=== PATIENT | male | born 1970 | race Caucasian/White ===

== ENCOUNTER → 2016-05-07 20:59 | Emergency (ER) | payer MEDICAID, OTHER, SELFPAY ==
[~2016-05-07 20:59] MED LIST: /PANT40TA OR; ACET65TA OR; ADVIL PO; FERR325T OR; FOLI1TAB OR; LASI20TA PO; LIPI10TA PO; METAL LOCK LOOP XX ONE; NORV5TAB PO; PERC5TAB8 OR; PRED10TA PO; SENO8.6T10 PO; TYLE325T5 PO; [UNRECOGNIZED DRUG - OTHER] PO; robitussin PO
--- NOTE | 2016-05-07 22:43 | EDDOCDS ---
Physician Documentation [facility] Name: Patrick Stark Age: 46 yrs Sex: Male : 1970 Arrival Date: 05/07/2016 Time: 20:59 Bed 2 Private MD: Disposition: Patient pronounced on 05/07/16 20:59 by Austin Will. Impression: Cardiac arrest. HPI: 05/07 21:06 This 46 yrs old Male presents to ER with complaints of Cardiac Arrest. pc 21:06 The history is obtained from EMS providers, a alumni relations officer. He was reportedly SOB at home and was reaching for his CPAP when he collapsed and went unresponsive. EMS was called and he was found pulseless and unresponsive, in PEA on the monitor. ACLS was initiated. His rhythm changed to asystole. He did not recover a spontaneous pulse at any time. On arrival, he is unresponsive with active CPR in progress. There is no signs of trauma. His pupils are fixed and dilated. He has no spontaneous pulse, has no spontaneous respirations. He is cold to the touch. His rhythm is asystole after 35 minutes of resuscitative efforts. The code was called and he was pronounced at 2059h. Historical: - Allergies: Unable to obtain; - Home Meds: 1. Unknown - PMHx: Asthma; - PSHx: Unable to obtain; MDM: 21:25 ED course: His fiancee confirms what our EMR reports, that he was last seen in 2013, when he presented with acute respiratory failure, in CHF. He was seen in the [facility] office once after that and has never seen a PCP since, has not taken any med sin 3 years.. 21:41 Physician consultation: Dr. Denver Scott was contacted at 21:41, regarding patient's condition, and he accepts as a [place] case. 22:12 Financial registration complete. zo 22:12 [place] [place] was scanned into [employer] and attached to record. zo Signatures: Austin Will MD MD pc Zecher, Calvin, RN RN cz Olin, Zoeann zo Booth, Mandy, RN RN [facility] The chart was reviewed and I authenticate all verbal orders and agree with the evaluation and treatment provided.Attachments: 22:12 [place] [place] zo MTDD
--- NOTE | 2016-05-07 22:43 | EDDOCDS ---
Nurse's Notes [facility] Name: Patrick Stark Age: 46 yrs Sex: Male : 1970 Arrival Date: 05/07/2016 Time: 20:59 Bed 2 Private MD: Diagnosis: Cardiac arrest Presentation: 05/07 20:56 Presenting complaint: EMS states: per : pt was reaching for his CPAP machine and mlc was feeling SOB. pt was down approx 15 minutes prior to EMS arrival. 5x 1 mg Epinephrine given by EMS. FS wsa 126. EMS states rhythm was PEA on monitor and then asystole just before arrival. Method of arrival: Ambulance: direct to room. Care prior to arrival: oral airway placed, CPR manually performed by EMS and is still in progress Placed on backboard. IV initiated. Glucose check. 126. 20:56 Compressions began prior to arrival. mlc 21:07 Acuity: ANDI Level 1 [facility] [place] Triage Assessment: 21:17 General: Appears obese. Neurological: Pupils are fixed, dilated. Respiratory: Airway is mlc compromised Respiratory effort is no respiratory effort. Derm: Skin is cyanotic. Historical: - Allergies: Unable to obtain; - Home Meds: 1. Unknown - PMHx: Asthma; - PSHx: Unable to obtain; Screenin:11 Abuse/DV Screen: The patient / caregiver reports he/she is: pt cannot be assessed for [facility] living situation at this time. Nutritional screening: Unable to Assess. Assessment: 20:56 CPR assessment: unresponsive, pupils fixed & dilated, no respiratory effort, cyanotic. mlc 20:56 General: CPR in progress by EMS upon arrival. mlc 20:59 Cardiac rhythm is asystole. [facility] ED Course: 21:00 Patient visited by Ant Calhoun PCA. kb5 21:00 Giovanna Knox,RN is Primary Nurse. kb5 21:00 Patient moved to Waiting kb5 21:00 Patient moved to 2 kb5 21:05 Austin Will MD is Attending Physician. pc 21:06 Austin Will MD is Pronouncing Provider. pc 21:11 Maintain field IV. Gauge & site: 20g left FA. mlc 21:12 Patient visited by Austin Will MD. pc 22:12 Patient name changed from Patrick\S\\S\Dresler\S\ to Patrick\S\ \S\Dresler. EDMS 22:12 [facility] Payment Agreement was scanned into [employer] and attached to record. zo Order Results: There are currently no results for this order. Outcome: 21:06 Patient . 21:11 Discharge Assessment: pt . Code Team Members : Austin Will MD Respiratory mlc Therapist: Rohit Tai Other Team Members: Nilsa Rudd, DERRELL. Costa Albarado, DERRELL. Brunilda Perez, VALUATION MANAGER. Aurora Chappell, VALUATION MANAGER. Rhythm strips are placed in the patient chart. Outcome Patient . Patient : Time of 20:59 Pronounced by Austin Will MD. Condition: . 22:42 Patient left the ED. cz Signatures: Dispatcher [employer] EDVT Austin Will MD MD pc Zecher, Calvin, RN RN cz Anabel Donnelly Kristopher, VALUATION MANAGER VALUATION MANAGER kb5 Giovanna Knox RN RN mlc Corrections: (The following items were deleted from the chart) 21:20 20:56 CPR assessment: unresponsive, pupils fixed & dilated, no respiratory effort, mlc cyanotic, mlc MTDD
--- NOTE | 2016-05-09 23:44 | EDDOCDS ---
Physician Documentation [facility] Name: Patrick Stark Age: 46 yrs Sex: Male : 1970 Arrival Date: 05/07/2016 Time: 20:59 Bed 2 Private MD: Disposition: Patient pronounced on 05/07/16 20:59 by Austin Will. Impression: Cardiac arrest. HPI: 05/07 21:06 This 46 yrs old Male presents to ER with complaints of Cardiac Arrest. pc 21:06 The history is obtained from EMS providers, a [place] [employer] officer. He was reportedly SOB at home and was reaching for his CPAP when he collapsed and went unresponsive. EMS was called and he was found pulseless and unresponsive, in PEA on the monitor. ACLS was initiated. His rhythm changed to asystole. He did not recover a spontaneous pulse at any time. On arrival, he is unresponsive with active CPR in progress. There is no signs of trauma. His pupils are fixed and dilated. He has no spontaneous pulse, has no spontaneous respirations. He is cold to the touch. His rhythm is asystole after 35 minutes of resuscitative efforts. The code was called and he was pronounced at 2059h. Historical: - Allergies: Unable to obtain; - Home Meds: 1. Unknown - PMHx: Asthma; - PSHx: Unable to obtain; MDM: 21:25 ED course: His fiancee confirms what our EMR reports, that he was last seen in 2013, when he presented with acute respiratory failure, in CHF. He was seen in the [facility] office once after that and has never seen a PCP since, has not taken any med sin 3 years.. 21:41 Physician consultation: Dr. Denver Scott was contacted at 21:41, regarding patient's condition, and he accepts as a [place] case. 22:12 Financial registration complete. zo 22:12 [place] [place] Payment Agreement was scanned into [employer] and attached to record. zo 05/08 10:32 Other: CHECKLIST FOR PT was scanned into [employer] and attached to record. gb 10:32 Trend VS was scanned into [employer] and attached to record. gb 10:33 Rhythm Strip was scanned into [employer] and attached to record. gb Signatures: Austin Will MD MD Torsten Gonzalez RN Nina Monterroso, Reg Reg gb Anabel Donnelly Mandy,DERRELL DOVE mlc The chart was reviewed and I authenticate all verbal orders and agree with the evaluation and treatment provided.Attachments: 05/07 22:12 [facility] Payment Agreement zo Chart Complete MTDD
--- NOTE | 2016-05-09 23:44 | EDDOCDS ---
Physician Documentation [facility] Name: Patrick Stark Age: 46 yrs Sex: Male : 1970 Arrival Date: 05/07/2016 Time: 20:59 Bed 2 Private MD: Disposition: Patient pronounced on 05/07/16 20:59 by Austin Will. Impression: Cardiac arrest. HPI: 05/07 21:06 This 46 yrs old Male presents to ER with complaints of Cardiac Arrest. pc 21:06 The history is obtained from EMS providers, a [employer]. He was reportedly SOB at home and was reaching for his CPAP when he collapsed and went unresponsive. EMS was called and he was found pulseless and unresponsive, in PEA on the monitor. ACLS was initiated. His rhythm changed to asystole. He did not recover a spontaneous pulse at any time. On arrival, he is unresponsive with active CPR in progress. There is no signs of trauma. His pupils are fixed and dilated. He has no spontaneous pulse, has no spontaneous respirations. He is cold to the touch. His rhythm is asystole after 35 minutes of resuscitative efforts. The code was called and he was pronounced at 2059h. Historical: - Allergies: Unable to obtain; - Home Meds: 1. Unknown - PMHx: Asthma; - PSHx: Unable to obtain; MDM: 21:25 ED course: His fiancee confirms what our EMR reports, that he was last seen in 2013, when he presented with acute respiratory failure, in CHF. He was seen in the [facility] office once after that and has never seen a PCP since, has not taken any med sin 3 years.. 21:41 Physician consultation: Dr. Denver Scott was contacted at 21:41, regarding patient's condition, and he accepts as a [place] case. 22:12 Financial registration complete. zo 22:12 [place] [place] was scanned into [employer] and attached to record. zo 05/08 10:32 Other: CHECKLIST FOR PT was scanned into [employer] and attached to record. gb 10:32 Trend VS was scanned into [employer] and attached to record. gb 10:33 Rhythm Strip was scanned into [employer] and attached to record. gb Signatures: Austin Will MD MD Torsten Gonzalez RN Nina Monterroso, Reg Reg gb Anabel Donnelly Mandy,DERRELL DOVE mlc The chart was reviewed and I authenticate all verbal orders and agree with the evaluation and treatment provided.Attachments: 05/07 22:12 [facility] Payment Agreement zo Chart Complete MTDD
--- NOTE | 2016-05-09 23:44 | EDDOCDS ---
Nurse's Notes [facility] Name: Patrick Stark Age: 46 yrs Sex: Male : 1970 Arrival Date: 05/07/2016 Time: 20:59 Bed 2 Private MD: Diagnosis: Cardiac arrest Presentation: 05/07 20:56 Presenting complaint: EMS states: per : pt was reaching for his CPAP machine and mlc was feeling SOB. pt was down approx 15 minutes prior to EMS arrival. 5x 1 mg Epinephrine given by EMS. FS wsa 126. EMS states rhythm was PEA on monitor and then asystole just before arrival. Method of arrival: Ambulance: direct to room. Care prior to arrival: oral airway placed, CPR manually performed by EMS and is still in progress Placed on backboard. IV initiated. Glucose check. 126. 20:56 Compressions began prior to arrival. mlc 21:07 Acuity: ANDI Level 1 [facility] [place] T[place] Assessment: 21:17 General: Appears obese. Neurological: Pupils are fixed, dilated. Respiratory: Airway is mlc compromised Respiratory effort is no respiratory effort. Derm: Skin is cyanotic. Historical: - Allergies: Unable to obtain; - Home Meds: 1. Unknown - PMHx: Asthma; - PSHx: Unable to obtain; Screenin:11 Abuse/DV Screen: The patient / caregiver reports he/she is: pt cannot be assessed [place] [facility] [place] at this time. Nutritional screening: Unable to Assess. Assessment: 20:56 CPR assessment: unresponsive, pupils fixed & dilated, no respiratory effort, cyanotic. mlc 20:56 General: CPR in progress by EMS upon arrival. mlc 20:59 Cardiac rhythm is asystole. [facility] [place] Course: 21:00 Patient visited by Ant Calhoun PCA. kb5 21:00 Giovanna nKox,RN is Primary Nurse. kb5 21:00 Patient moved to Waiting kb5 21:00 Patient moved to 2 kb5 21:05 Austin Will MD is Attending Physician. pc 21:06 Austin Will MD is Pronouncing Provider. pc 21:11 Maintain field IV. Gauge & site: 20g left FA. mlc 21:12 Patient visited by Austin Will MD. pc 22:12 Patient name changed from Patrick\S\\S\Dresler\S\ to Patrick\S\ \S\Dresler. EDMS 22:12 [facility] Payment Agreement was scanned into [employer] and attached to record. zo 05/08 10:32 Other: CHECKLIST FOR PT was scanned into [employer] and attached to record. gb 10:32 Trend VS was scanned into [employer] and attached to record. gb 10:33 Rhythm Strip was scanned into [employer] and attached to record. gb Attachments: 10:32 Trend VS gb 10:33 Rhythm Strip gb Order Results: There are currently no results for this order. Outcome: 05/07 21:06 Patient . pc 21:11 Discharge Assessment: pt . Code Team Members : Austin Will MD Respiratory mlc Therapist: Rohit Tai Other Team Members: Nilsa Rudd, DERRELL. Costa Albarado, DERRELL. Brunilda Perez, JERRY. Aurora Chappell, ELEMENT SETTER. Rhythm strips are placed in the patient chart. Outcome Patient . Patient : Time of 20:59 Pronounced by Austin Will MD. Condition: . 22:42 Patient left the ED. cz Signatures: Dispatcher [employer] Austin Hernandez MD MD pc Zecher, Calvin, DERRELL RN cz Nina Bates, Reg Reg gb Anabel Donnelly Kristopher, ELEMENT SETTER ELEMENT SETTER kb5 Giovanna Knox RN RN mlc Corrections: (The following items were deleted from the chart) 21:20 20:56 CPR assessment: unresponsive, pupils fixed & dilated, no respiratory effort, mlc cyanotic, mlc Chart Complete MTDD
== END | disposition expired ==
LOC: M ED 20:59
DX: I46.9 Cardiac arrest, cause unspecified (principal)

== ENCOUNTER → 2016-05-08 | Outpatient (REF) ==
[~2016-05-08] MED LIST changes: -METAL LOCK LOOP XX ONE
== END ==
LOC: M LAB 09:25